=== PATIENT | female | born 2000 | race American Indian/Alaskan Native ===

== ENCOUNTER 2021-03-11 06:09 | Emergency (ER) | payer SELFPAY ==
[2021-03-11 06:16] VITALS: BP 137/91
--- NOTE | 2021-03-11 07:48 | Emergency Department Report ---
HPI - General Chief Complaint: Allergic Reaction Time Seen by Provider: 03/11/21 07:41 - HPI HPI: The patient was evaluated in the emergency department for symptoms described in the history of present illness. He/she was evaluated in the context of the obal COVID-19 pandemic, which necessitated consideration that the patient might be at risk for infection with the virus that causes COVID-19. Institutional protocols and algorithms that pertain to the evaluation of patients at risk for COVID-19 are in a state of rapid change based on information released by regulatory bodies including the CDC and federal and state organizations. These policies and algorithms were followed during the patient's care in the emergency department. Please note that these policies, procedures and recommendations changed on a rapid basis. 20-year-old morbid obese -[place] female with no history of known drug allergies presents to the emergency room reporting she woke up this morning with a swollen lower lip. She denies any pain. She states it started about an hour prior to arrival. She is taking nothing. She denies any trouble swallowing breathing or shortness of breath and no chest pain. She does admit that she takes [id number]-[id number] probiotics B12 garlic pills. She does admit to having a history of seasonal allergies but does not take anything for it. Patient states that she feels like her body is very itchy. Patient denies any new foods new soaps detergents. ED Past Medical Hx - Past Medical History Previous Medical History?: No - Surgical History Past Surgical History?: No - Medications Home Medications: Home Medications Medication Instructions Recorded Confirmed Last Taken Type predniSONE 20 mg PO QDAY 4 Days #8 tablet 03/11/21 Unknown Rx ED Review of Systems ROS: Stated complaint: ALLERGIC REACTION Other details as noted in HPI Comment: All other systems reviewed and negative Physical Exam - Physical Exam Vital Signs: Vital Signs 03/11/21 06:14 Temperature 98.8 F Pulse Rate 89 Respiratory 18 Rate Blood Pressure 137/91 O2 Sat by Pulse 99 Oximetry General: GENERAL APPEARANCE: Well developed, well nourished, in no acute distress. SKIN: Inspection of the skin reveals erythematous lesion to the left preauricular and right upper chest. HEENT: The sclerae were anicteric and conjunctivae were pink and moist. Extraocular movements were intact and pupils were equal, round, and reactive to light with normal accommodation. External inspection of the ears and nose showed no scars, lesions, or masses. Teeth, and gums showed normal mucosa. Lower lip right side swelling no tenderness nonerythematous no open wound. The oral mucosa, hard and soft palate, tongue and posterior pharynx were normal. NECK: Supple and symmetric. There was no thyroid enlargement, and no tenderness, or masses were felt. CHEST: Normal AP diameter and normal contour without any kyphoscoliosis. LUNGS: Auscultation of the lungs revealed normal breath sounds without any other adventitious sounds or rubs. CARDIOVASCULAR: There was a regular rate and rhythm without any murmurs, gallops, rubs. LYMPH NODES: No lymphadenopathy was appreciated in the neck, MUSCULOSKELETAL: Gait was normal. Muscle strength and tone were normal. EXTREMITIES: No cyanosis, clubbing or edema. NEUROLOGIC: Alert and oriented x 3. Normal affect. Gait was normal. Sensation to touch was normal. ED Course Vital Signs 03/11/21 06:14 Temperature 98.8 F Pulse Rate 89 Respiratory 18 Rate Blood Pressure 137/91 O2 Sat by Pulse 99 Oximetry ED Medical Decision Making - Medical Decision Making 20-year-old morbid obese -[place] female with no history of known drug allergies presents to the emergency room reporting she woke up this morning with a swollen lower lip. She denies any pain. She states it started about an hour prior to arrival. She is taking nothing. She denies any trouble swallowing breathing or shortness of breath and no chest pain. She does admit that she takes tsmy-dbq-eorslow probiotics B12 garlic pills. She does admit to having a history of seasonal allergies but does not take anything for it. Patient states that she feels like her body is very itchy.Patient states that she feels like her body is very itchy. Patient denies any new foods new soaps detergents. Patient be given Benadryl Pepcid prednisone. Patient be discharged home with instructions to take [id number] Zyrtec's or Claritin. Critical care attestation.: If time is entered above; I have spent that time in minutes in the direct care of this critically ill patient, excluding procedure time. ED Disposition Clinical Impression: Swollen lip, Allergic reaction Disposition: HOME / SELF CARE / HOMELESS Is pt being admited?: No Does the pt Need Aspirin: No Condition: Stable Instructions: Allergies, Adult, Eufd-su-Wqer Additional Instructions: Recommend ffgh-hvx-[id number] Zyrtec's or Claritin. Increase your water intake. Take prednisone as prescribed. Prescriptions: predniSONE 20 mg PO QDAY 4 Days #8 tablet Referrals: [facility] [Provider Group] - 3-5 Days Forms: Work/School Release Form(ED) Time of Disposition: 07:55
[2021-03-11] MEDS ORDERED: FAMOTIDINE 20 MG TAB PO ONE (07:52)
[2021-03-11] MEDS ORDERED: diphenhydrAMINE 25 MG CAP PO ONE (07:52)
[2021-03-11] MEDS ORDERED: predniSONE 10 MG TAB PO ONE (07:52)
== END 2021-03-11 08:34 | disposition home or self-care (01) ==
LOC: ED 06:09
DX: R22.0 Localized swelling, mass and lump, head (principal); T50.995A Adverse effect of other drugs, medicaments and biological substances, initial encounter; Y92.89 Other specified places as the place of occurrence of the external cause
CPT/HCPCS: 99282; J7512